=== PATIENT | male | born 1990 | race Caucasian/White ===

== ENCOUNTER 2020-02-22 15:42 | Emergency (ER) | payer BC ==
[2020-02-22] MEDS ORDERED: TETANUS & DIPHTHERIA TOX,ADULT 0.5 ML VIAL ONE (16:40)
[2020-02-22] MEDS ORDERED: NA CHLORIDE 0.9% 1,000 ML ONE (16:40)
[2020-02-22] MEDS ORDERED: MORPHINE 4 MG/ML SYR ONE ×2 (16:40→18:11)
[2020-02-22] MEDS ORDERED: ONDANSETRON 4 MG/2 ML VIAL ONE (16:40)
[2020-02-22] MEDS ORDERED: SILVER SULFADIAZINE 1% 50 GM TOP ONE (16:51)
[2020-02-22 17:08] LABS: Absolute Lymphocytes (CBC) 1.6 K/uL (0.7-4.9); Basophils % 0.4 % (0-1.3); Hematocrit 42.1 % (39.6-49.0); Lymphocytes % 12.8 % (15.3-44.8); MPV 9.7 fL (7.6-11.3); RBC Red Blood Cell Count 4.89 M/uL (4.33-5.43)
[2020-02-22 17:17] LABS: Potassium 3.9 mmol/L (3.5-5.1)
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
--- OUTSIDE RECORDS SUMMARY | 2020-02-22 18:38 | XMS REPORT | Clinical Summary ---
:1990 Author Organization [facility] Address [address] [place] [address] Care Team Providers Name Role Phone Beba Gilmore Primary Care Provider Allergies No Known Allergies Medications Medication Sig Dispensed Refills Start Date End Date Status pantoprazole (PROTONIX) Take 1 tablet 0 Active 40 MG EC tablet every day by oral route. rosuvastatin (CRESTOR) Take 10 mg by 0 Active 10 MG tablet mouth daily. Active Problems Not on file Encounters Date Type Specialty Care Team Description 08/07/2019 Office Visit Gastroenterology Luigi Stover, Michelle rogers dysphagia (Primary Dx) after 02/21/2019 Social History Tobacco Use Types Packs/Day Years Used Date Never Smoker Smokeless Tobacco: Never Used Alcohol Use Drinks/Week oz/Week Comments Yes Sex Assigned at Date Recorded Not on file Job Start Date Occupation Industry Not on file Not on file Not on file Travel History Travel Start Travel End No recent travel history available. 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 Pulse 73 08/07/2019 3:51 PM PROPERTY ADMINISTRATOR Temperature - - Respiratory Rate - - Oxygen Saturation - - Inhaled Oxygen Concentration - - Weight 76.2 kg (168 lb) 08/07/2019 3:51 PM PROPERTY ADMINISTRATOR Height 175.3 cm (5' 9") 08/07/2019 3:51 PM PROPERTY ADMINISTRATOR Body Mass Index 24.81 08/07/2019 3:51 PM PROPERTY ADMINISTRATOR Plan of Treatment Health Maintenance Due Date Last Done Comments INFLUENZA VACCINE 03/29/2020 Results Not on fileafter 02/21/2019 Advance Directives For more information, please contact: [phone] Type Date Recorded 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
[2020-02-22 19:44] VITALS: O2SAT 99
[2020-02-22 19:45] VITALS: BP 121/82; TEMP 97.8
== END 2020-02-22 18:55 | disposition short-term general hospital (02) ==
LOC: ER 15:42
DX: T22.211A Burn of second degree of right forearm, initial encounter (principal); T23.261A Burn of second degree of back of right hand, initial encounter; T20.10XA Burn of first degree of head, face, and neck, unspecified site, initial encounter; T31.0 Burns involving less than 10% of body surface; W86.8XXA Exposure to other electric current, initial encounter; Y93.89 Activity, other specified; Y92.89 Other specified places as the place of occurrence of the external cause; Y99.0 Civilian activity done for income or pay; Z23 Encounter for immunization
CPT/HCPCS: 96361; 85025; 80048; 36415; 90471; 90714; 96375; 96374; 99285; J7030; J2405